=== PATIENT | female | born 1950 | race Caucasian/White ===

== ENCOUNTER 2016-08-13 14:33 | Emergency (ER) | payer MEDICARE, OTHER ==
[~2016-08-13] VITALS: Ht 162.6 cm; Wt 64.1 kg
[~2016-08-13 14:33] MED LIST: DIPH25CA6 PO; OXYC1TAB24 PO
[2016-08-13] MEDS ORDERED: Ondansetron 2 mg/mL 2 mL Inj IVPUSH PRN (14:50)
[2016-08-13] MEDS ORDERED: HYDROmorphone 0.5 mg/0.5 mL iSecure Syringe IVPUSH PRN (14:50)
[2016-08-13 14:53] VITALS: BP 154/70; PULSE 84; RESP 16; O2SAT 100
[2016-08-13 15:31] LABS: BASOPHILS % (AUTO) 0.5 % (0-3); EOSINOPHILS % (AUTO) 1.8 % (0-5); MONOCYTES % (AUTO) 7.3 % (4-12); Mean Corpuscular Hemoglobin 32.4 pg (27.0-35.0); Mean Corpuscular Volume 100.3 fL (81-100); NEUTROPHILS % (AUTO) 59.5 % (40-74); Platelet Count 200 bil/L (150-400)
--- NOTE | 2016-08-13 15:48 | DRSVH ---
PROCEDURE: X-RAY PELVIS W/LAT HIP (LT) ([id number]) INDICATIONS: dislocated prosthetic hip TECHNIQUE: AP pelvis and lateral view of the left hip acquired. COMPARISON: None. FINDINGS: Bones: Patient is status post left hip arthroplasty, with hardware showing superior dislocation of t he femoral component. The visualized bony structures appear intact. Remote laminectomy defect at the L4 level. Soft tissues: Overlying postoperative changes are noted. No suspicious soft tissue densities. IMPRESSION: Dislocation of left total hip arthroplasty. Dictated by: John Snyder M.D. on 08/13/2016 at 15:45 Approved by: John Snyder M.D. on 08/13/2016 at 15:47
[2016-08-13] MEDS ORDERED: Propofol 10 mg/mL 20 mL Inj ONE (15:53)
--- NOTE | 2016-08-13 16:00 | NUR ---
Patient was placed on 4lpm nasal cannula with etc02 for procedure with initial oxygen saturation of 100% and etc02 of 19. she was provided some breaths via bag mask ventilation for a couple of minutes post procedure. she had good and equal chest rise with manual ventilation with stable vital signs. she was closely monitored and was awake and talking when i left her room. Her oxygen saturation was still 100% and her ETC02 was reading 29. patient was stable.
--- NOTE | 2016-08-13 16:20 | ED.REPORT ---
HPI-Hip/Pelvis Prob/Inj Date of Service Aug 13, 2016 ED Provider: Marbin Landa MD THis is a year old female with a history of rheumatoid arthritis and five prosthetic hip dislocations presenting with left hip pain that began just prior to arrival. Pt states she bent over and heard a popping sound. Reports five episodes of similar presentation in the past - but last dislocation was approximately 13 months ago. Patient thinks she had a revision baby 2 years ago. All for orthopedic care spent [place]. She denies any additional injury. She denies numbness weakness paresthesias. Eyes be on anticoagulants period. Nursing Notes Stated Complaint: HIP DISLOCATION Chief Complaint: Extremity Trauma Nursing Notes Reviewed: Yes ([facility], [email or web address] not reconciled) Allergies: Coded Allergies: codeine (Verified Allergy, Unknown, dizzy/nausea, 08/13/16) Scheduled PRN diphenhydrAMINE HCl (Benadryl) 25 Mg Capsule 25 MG PO Q4 PRN PRN For Itching take 1-2 tabs with each dose oxycodone to prevent itching oxyCODONE-Acetaminophen 5-325 mg (oxyCODONE-Acetaminophen 5-325 mg) 1 Each Tablet 0.5-2 TAB PO Q6H PRN PRN For Pain General Time Seen by Provider: 14:46 Chief Complaint Hip injury left Hx Obtained From: Patient Arrived By: Ambulance Onset Occurred: Just prior to arrival Symptom Duration: Since onset Severity: Current: Moderate Pertinent Negative: Pt denies other symptoms Recent Healthcare: No recent doctor visit, No recent hospitalization Similar Sx Previous: Yes Past Medical History Past Medical History Rheumatoid Arthritis Past Surgical History left hip pain (5 prior prosthetic dislocations, cared for at [facility]) (6th dislocation at [facility] 08/13/16) back surgery Smoking History Smoker Current Status UNK Social History Alcohol Use: Denies alcohol use Drug Use: Denies drug use Ambulatory Status Independent Review of Systems Constitutional: Denies: Chills, Fever Musculoskeletal: Reports: Joint pain, Denies: Back pain Neurologic: Denies: Change LOC, Headache, Lightheaded, Numbness Complete sys rev & neg: except as marked. Physical Exam Initial Vital Signs Vital Signs (First) Date Time Temp Pulse Resp B/P Pulse Ox O2 Delivery O2 Flow Rate FiO2 08/13/16 14:53 36.9 84 16 154/70 100 08/13/16 17:36 Room Air Initial VS: Reviewed, Vital signs normal General/Constitutional: Well-developed, Well-nourished Head / Eyes: Atraumatic, Normocephalic, PERRL ENT: Mucous membranes moist, Conjunctiva normal, No scleral icterus Neck: Supple, Non-tender, Full range of motion Respiratory: Breath sounds normal, Clear to auscultation, No respiratory distress Cardiovascular: Regular rate & rhythm, Heart sounds normal, Intact distal pulses Abdomen / GI: Soft, Non-tender, No guarding, No rebound, No distention Upper Extremities: Vascular intact, Neuro intact, No swelling, No tenderness Skin: Warm, Dry, No cyanosis Neurologic: Alert, Oriented, Nonfocal Psychiatric: Mood/affect normal, Behavior normal, Normal thought content Lower Extremity / Pelvis / MS: Neurologic intact, Vascular intact Left Hip: Positive: ROM reduced..., Tenderness present... Interpretation & Diagnostics L HIP X-RAY IMPRESSION: Dislocation of left total hip arthroplasty. Dictated by: John Snyder M.D. on 08/13/2016 at 15:45 Approved by: John Snyder M.D. on 08/13/2016 at 15:47 Lab Results Interpretation Result Diagram: 08/13/16 1500 08/13/16 1500 Test 08/13/16 15:00 White Blood Count 7.7th/mm3 (3.8-10.1) Red Blood Count 3.95mil/mm3 (3.90-5.20) Hemoglobin 12.8g/dL (12.0-15.6) Hematocrit 39.6% (35.0-46.0) Mean Corpuscular Volume 100.3fL (81-100) Mean Corpuscular Hemoglobin 32.4pg (27.0-35.0) Mean Corpuscular Hemoglobin Concent 32.3% (32.0-37.0) Red Cell Distribution Width 15.1% (12.3-15.4) Platelet Count 200bil/L (150-400) Neutrophils (%) (Auto) 59.5% (40-74) Lymphocytes (%) (Auto) 30.6% (14-46) Monocytes (%) (Auto) 7.3% (4-12) Eosinophils (%) (Auto) 1.8% (0-5) Basophils (%) (Auto) 0.5% (0-3) Sodium Level 136mEq/L (134-144) Potassium Level 4.2mEq/L (3.5-5.2) Chloride Level 95mEq/L (97-108) Carbon Dioxide Level 21mmol/L (18-29) Blood Urea Nitrogen 18mg/dL (8-27) Creatinine 0.77mg/dL (0.57-1.00) Estimat Glomerular Filtration Rate 107mL/min (>59) Glucose Level 90mg/dL (60-99) Calcium Level 10.1mg/dL (8.5-10.1) Total Bilirubin 1.0mg/dL (0.0-1.2) Aspartate Amino Transf (AST/SGOT) 33U/L (0-50) Alanine Aminotransferase (ALT/SGPT) 11U/L (0-32) Alkaline Phosphatase 78U/L (25-165) Total Protein 7.2g/dL (6.4-8.4) Albumin 4.4g/dL (3.4-5.0) Lab Results Interpretation: CBC normal CMP normal Procedures Proced Mod Sedation/Analgesia Time: 16:06 Procedure Performed by: ED physician Consent / Setup: Informed consent provided, Consent from patient Indication: Hip reduction Preparation: potline monitor applied, Pulse oximeter applied, Constant attendance, IV access established, Eval last meal time, Supplemental oxygen, Procedure explained, Suction available, End tidal CO2 mon applied VS Prior to Procedure: All vital signs normal, Blood pressure normal, Heart Rate normal, Respiratory rate normal Airway Exam: Normal facial anatomy CVS/Resp Exam: Normal breath sounds Sedation: Sedation: Propofol Response During Procedure: Handled secretions adeq, Maintained airway well, Oxygenation stable, Sedation appropriate, Vital signs stable Complications During/After: None Reversal: None required Mental Status After Procedure: Alert, Oriented X3, Normal per age, At patient' s baseline Post-Procedure: Alert prior to discharge, Ambulatory with assist, Pt rtn pre- proc baseline, Vital signs normal Attestation: I performed procedure, I performed sedation Reduction Post Dislocation Hip Time: 16:10 Consent / Timeout / Setup: Informed consent provided, Consent from patient Procedural Sedation/Analgesia: Sedation: Propofol Which Hip and Technique: Left hip Neurovascular: Intact pre-procedure, Intact post-procedure Post-Procedure / Complications: Reduced per examination, Procedure successful, X-ray disloc reduced, Condition improved, Tolerated procedure well, Patient stable Re-Eval/Medical Decision Med Decision/Clinical Course This is a 66-year-old female who presents with a prosthetic left hip dislocation. This would be her 6 total prosthetic dislocation, but she did report she underwent a revision she thinks maybe 2 years ago. All orthopedic work is been done out of effort, she reports her last dislocation was in July 2015. Recently bending over as the hip dislocated. She has no additional complaints pruritus and severe pain. Exam she has a clinically dislocated left hip. Other than his pulses remain intact. The patient is an excellent candidate for procedural sedation, after informed consent was obtained received titrated propofol, and the hip was reduced without difficulty. Post procedure film demonstrates complete hip reduction, and symptoms have resolved. Patient's place a knee immobilizer-she brought her own having been through this process before, and reports she has adequate pain medicines at home. Patient is discharged in improved condition with instructions to follow up with her orthopedist in [place] Source of Hx: Old records, EMS Re-Evaluation/Progress : Time of Eval: 16:06 Re-Evaluation/Progress Note: Procedural sedation and reduction Counseled Regarding: Diagnosis, Lab results, Need for follow-up, When/why to return to ED Discharge & Departure Impression: Primary Impression: Hip dislocation, left Encounter type: initial encounter Qualified Code: S73.005A - Unspecified dislocation of left hip, initial encounter Disposition: Home Discharge Condition All VS Reviewed: Yes Condition: Stable Additional Instructions: 1. You underwent procedural sedation and reduction of the dislocated prosthetic hip. 2. Use the knee immobilizer as it helps prevent further dislocations. 3. Call your orthopedist at [place] tomorrow for follow-up. 4. Return if new or worsening symptoms. 5. Take it easy tonight is he did receive medicines the MICU little drowsy. No driving for the evening. Referrals: [facility]OPCP (PCP) Scribe Attestation Portions of this note were transcribed by Ijeoma Alexander. I, Dr. Landa personally performed the history, physical exam and medical decision-making; I reviewed and confirmed the accuracy of the information in the transcribed note. Signed by: foster Garcia. 08/13/2016, 23:30. Marbin Landa MD Aug 13, 2016 16:20 IJEOMA ALEXANDER Aug 13, 2016 16:24
--- NOTE | 2016-08-13 16:33 | DRSVH ---
PROCEDURE: X-RAY PELVIS ONE OR TWO VIEWS ([id number]) INDICATIONS: post reduction TECHNIQUE: 1 view of the lower pelvis acquired. COMPARISON: 08/13/2016 FINDINGS: Bones: Patient is status post left hip arthroplasty, with hardware components in expected positions post closed reduction. The hip joint appears congruent. The visualized bony structures appear intac t. Soft tissues: Overlying postoperative changes are noted. No suspicious soft tissue densities. IMPRESSION: Interval reduction of prior dislocation and left hip prosthesis. Dictated by: John Snyder M.D. on 08/13/2016 at 16:31 Approved by: John Snyder M.D. on 08/13/2016 at 16:32
[2016-08-13 17:36] VITALS: BP 138/81; PULSE 76; RESP 21; O2SAT 100
== END 2016-08-13 17:37 | disposition home or self-care (01) ==
LOC: SED 14:33 → EDBD 14:33 → SED 17:37
DX: T84.021A Dislocation of internal left hip prosthesis, initial encounter (principal); X58.XXXA Exposure to other specified factors, initial encounter; Y93.89 Activity, other specified; Y92.9 Unspecified place or not applicable; Y99.8 Other external cause status; Z88.5 Allergy status to narcotic agent
CPT/HCPCS: 27265; 36415; 72170; 73501; 80053; 85025; 94770; 94799; 96374; 99285; J1170